=== PATIENT | female | born 1980 ===

== ENCOUNTER → 2024-02-25 06:17 | Day surgery (SDC) | payer OTHER, SELFPAY | LOC: GI 06:17 | PROVIDERS: ATTENDING PHYSICIAN Internal Medicine | DX: D12.0 Benign neoplasm of cecum (principal); D12.2 Benign neoplasm of ascending colon; D12.3 Benign neoplasm of transverse colon; K57.30 Diverticulosis of large intestine without perforation or abscess without bleeding; K62.1 Rectal polyp; K92.1 Melena | CPT/HCPCS: 45385; 45380; 88305 ==

== ENCOUNTER 2024-03-12 06:20 | Day surgery (SDC) | payer OTHER, SELFPAY ==
[2024-03-06 14:16] VITALS: BMI 32.2
[2024-03-06 14:40] LABS: Hematocrit 35.6 % (37.0-47.0); Hemoglobin 12.7 g/dL (12.0-16.0); Mean Corp Hgb Conc. 35.7 g/dL (33.0-37.0); Mean Corpuscular Hgb 29.4 pg (27.0-31.0); Mean Corpuscular Volume 82.4 fL (81.0-99.0); Mean Platelet Volume 8.6 fL (7.4-10.4); Platelet Count 259 10^3/uL (130-400); Red Blood Cell Count 4.32 10^6/uL (4.20-5.40); Red Cell Dist. Width 12.2 % (11.5-14.5); White Blood Cell Count 8.9 10^3/uL (4.8-10.8)
[2024-03-06 15:05] LABS: ALT (SGPT) 26 U/L (0-35); AST (SGOT) 24 U/L (14-36); Albumin 4.2 g/dl (3.5-5.0); Alkaline Phosphatase 45 U/L (38-126); Blood Urea Nitrogen 22 mg/dl (7-17); Calcium 9.7 mg/dl (8.4-10.2); Carbon Dioxide 27 mmol/L (22-30); Chloride 101 mmol/L (98-107); Estimated Creatinine Clearance 105 ml/min; Glucose 96 mg/dl (70-99); Potassium 4.2 mmol/L (3.5-5.1); Sodium 138 mmol/L (135-145); Total Bilirubin 0.4 mg/dl (0.2-1.3); Total Protein 6.6 g/dl (6.3-8.2); eGFR > 60.00
[2024-03-12] VITALS (21 sets, daily range): BP systolic 82–152; BP diastolic 58–105; BMI 32.2
[2024-03-12] MEDS: LYRICA 150 MG PO (11:50)
[2024-03-12] MEDS: SKELAXIN 800 MG PO (11:50)
[2024-03-12] MEDS: CELEBREX 200 MG PO (11:51)
[2024-03-12] MEDS: TYLENOL 1000 MG PO ×3 (11:51→23:30)
[2024-03-12] MEDS: NORMOSOL-R/PLASMALYTE-A 1000 IV (12:00)
[2024-03-12] MEDS: ULTRAM 50 MG PO ×2 (18:17→23:30)
[2024-03-12] MEDS: FLORASTOR 250 MG PO (20:28)
[2024-03-12] MEDS: COLACE 100 MG PO (20:28)
[2024-03-12] MEDS: VITAMIN D3 (cholecalciferol) 125 MCG PO (20:29)
[2024-03-12] MEDS: SENOKOT PO (20:29)
[2024-03-12] MEDS: ANCEF 5 IV (20:29)
[2024-03-12] MEDS: ZOFRAN 4 MG IV (20:51)
[2024-03-12] MEDS: NORMOSOL-R/PLASMALYTE-A IV (22:31)
[2024-03-12] MEDS: LYRICA 75 MG PO (23:30)
--- NOTE | 2024-03-13 01:15 | PTCARENOTE ---
Pt arrived via bed from PACU at 1920. Pt AAOX3. VSS. IVF infusing. NV checks WNL. medial back dressing C/D/I. Head to toe assessment complete. oriented to room and call hein. bed in lowest position and locked.
[2024-03-13] MEDS: ANCEF 5 IV (04:09)
[2024-03-13] MEDS: ULTRAM 50 MG PO ×2 (05:22→11:28)
[2024-03-13] MEDS: TYLENOL 1000 MG PO ×2 (05:22→11:27)
[2024-03-13] MEDS: NORMOSOL-R/PLASMALYTE-A 1000 IV (05:24)
[2024-03-13 05:50] LABS: Hematocrit 33.8 % (37.0-47.0); Hemoglobin 12.4 g/dL (12.0-16.0)
[2024-03-13 06:40] LABS: Blood Urea Nitrogen 16 mg/dl (7-17); Calcium 8.7 mg/dl (8.4-10.2); Carbon Dioxide 22 mmol/L (22-30); Chloride 103 mmol/L (98-107); Estimated Creatinine Clearance 105 ml/min; Glucose 101 mg/dl (70-99); Potassium 4.1 mmol/L (3.5-5.1); Sodium 138 mmol/L (135-145); eGFR > 60.00
[2024-03-13 07:55] VITALS: BP 130/77
--- NOTE | 2024-03-13 07:56 | W.DS.TRANS ---
DC Summary - [employer]
-
Discharge Instructions:
Sleep Apnea Risk Low
Discharge Diagnosis/Procedures Lumbar stenosis with neurogenic claudication s/p
L4-L5 lami/PSF w/ Dr Martel 03/12/24
Diet Regular
Activity As tolerated
Additional Activity No heavy lifting >10 lbs
Driving Restrictions Not until seen by your Dr
Bathing Restrictions OK to shower in 4 days
Instructions:
Stand-Alone Forms: [facility] Lumbar D/C Inst.
Changes to Home Medications: No
Discharge Medications:
DC Medications w/original date entered in [facility]
cholecalciferol (vitamin D3) 125 mcg (5,000 unit) tablet (Vitamin D3) 125 mcg PO DAILY 03/05/24
lactobacillus combination no.4 3 billion cell capsule (Probiotic) 3,000 mmu cells PO DAILY 03/05/24
magnesium 200 mg tablet 400 mg PO DAILY 03/05/24
meloxicam 15 mg tablet 15 mg PO DAILY PRN pain 03/05/24
tramadol 50 mg tablet 50 mg PO DAILY PRN pain 03/05/24
Home Medication Changes
Pending Results: No
--- NOTE | 2024-03-13 07:56 | W.PN.SP ---
Today's Communication / Plan
-
Doing well
D/C post PT
Subjective / Objective
Subjective Data
Doing well
Pain is better in legs
Back is sore
Denies new weakness, both legs feel stronger
Objective Data
Vital Signs
Temp Pulse Resp BP Pulse Ox
98.4 F 86 19 130/77 99
03/13/24 07:55 03/13/24 07:55 03/13/24 07:55 03/13/24 07:55 03/13/24 07:55
Intake and Output
03/12/24 03/13/24 03/14/24
06:59 06:59 06:59
Intake Total 2650 / 2650
Balance 2650 / 2650
Intake:
Oral fluids 1440 / 1440
IV fluids (Total) 1200 / 1200
IV piggybacks
Other:
Number of approximated MODERATE 2
amounts of urine
How many times incontinent 1
MODERATE amount urine
Lab Data
03/13/24 05:12
03/13/24 05:12
Physical Exam
-
Neuro stable
[2024-03-13] MEDS: COLACE 100 MG PO (08:18)
[2024-03-13] MEDS: SENOKOT 17.2 MG PO (08:18)
[2024-03-13] MEDS: VITAMIN D3 (cholecalciferol) 125 MCG PO (08:18)
[2024-03-13] MEDS: FLORASTOR 250 MG PO (08:18)
--- NOTE | 2024-03-13 09:41 | CM ---
Reviewed the chart notes and spoke with the patient at the bedside. The patient resides with her spouse in a split level home with one step to enter. The patient reports no DME/VN/SNF in the past. The patient was issued a back brace to wear. The
patient confirmed her pharmacy of choice is the [facility]. CM continues to be available to patient/family and is monitoring medical plan for needs at discharge.
Plan: Discharge to home when medically stable. No needs identified at this time. VN/homecare ordered, patient declined, no need.
[2024-03-13 10:00] VITALS: BP 132/79; PULSE 79
--- NOTE | 2024-03-13 10:22 | W.PN.ORTHO ---
Today's Communication / Plan
-
D/c today since clinically stable, did well w/ PT and OT.
Assessment
.
Distal Motor Intact: Yes
Dressing:
Clean, dry and intact.
Assessment:
Lumbar stenosis with neurogenic claudication s/p R L3-L4 Discectomy, L L4-L5 Hemilami w/ Dr Martel 03/12/24
DVT prophylaxis - b/l SCDs/TEDs
Colon polyps
Diverticulosis
Plan
.
Surgery / Date: R L3-L4 Discectomy, L L4-L5 Hemilami w/ Dr Martel
DVT Prophylaxis: Other (b/l SCDs/TEDs )
Activity:
Out of bed.
PT/OT
Discharge Plan: Home
Subjective
.
.:
Patient resting comfortably in bed this AM.
Low back pain minimal w/ current pain meds.
Denies any new significant complaints.
AM labs stable.
Eager for potential d/c today.
Vital Signs and Labs
.
Vital Signs and Labs:
Lab Results
03/13/24 05:12
03/13/24 05:12
Temp Pulse Resp BP Pulse Ox
98.4 F 86 19 130/77 99
03/13/24 07:55 03/13/24 07:55 03/13/24 07:55 03/13/24 07:55 03/13/24 07:55
Physical Exam
-
HEENT: No pallor, cyanosis, or jaundice. Throat clear.
NECK: Supple. No JVD.
RESPIRATORY: Lungs clear to auscultation.
CVS: S1, S2 normal. RRR.
ABDOMEN: Soft, non-tender. No distension. Obese.
EXTREMITIES: Strength equal, no calf pain with palpation/dorsiflexion. Calves soft.
INFRASTRUCTURE TECH: AOx3. No focal deficits. learning engineer grossly intact
[2024-03-13 10:28] VITALS: BP 135/92; PULSE 86; O2SAT 96
--- NOTE | 2024-03-13 10:32 | W.DS.TRANS ---
DC Summary - [employer]
-
Discharge Instructions:
Sleep Apnea Risk Low
Discharge Diagnosis/Procedures Lumbar stenosis with neurogenic claudication s/p
right L3-L4 Discectomy, left L4-L5
Hemilaminectomy w/ Dr Martel 03/12/24
Diet Regular
Activity As tolerated
Additional Activity No heavy lifting >10 lbs
Driving Restrictions Not until seen by your Dr
Bathing Restrictions OK to shower in 4 days
Instructions:
Stand-Alone Forms: [facility] Lumbar D/C Inst.
Changes to Home Medications: Yes
Discharge Medications:
DC Medications w/original date entered in [facility]
cholecalciferol (vitamin D3) 125 mcg (5,000 unit) tablet (Vitamin D3) 125 mcg PO DAILY 03/05/24
lactobacillus combination no.4 3 billion cell capsule (Probiotic) 3,000 mmu cells PO DAILY 03/05/24
magnesium 200 mg tablet 400 mg PO DAILY 03/05/24
acetaminophen 500 mg tablet (Tylenol Extra Strength) 1,000 mg (2 x 500 mg) PO Q6H #60 tabs 03/13/24
cephalexin 500 mg capsule 500 mg PO QID #20 caps 03/13/24
docusate sodium 100 mg capsule 100 mg PO BID #30 caps 03/13/24
ondansetron HCl 4 mg tablet 4 mg PO Q6H PRN nausea and vomiting #30 tabs 03/13/24
pregabalin 75 mg capsule 75 mg PO BID neuropathic pain #15 caps 03/13/24
sennosides 8.6 mg tablet (Senna Laxative) 17.2 mg (2 x 8.6 mg) PO BID #30 tabs 03/13/24
tramadol 50 mg tablet 50 - 100 mg (1 - 2 x 50 mg) PO Q6H PRN moderate-severe pain #30 tabs 03/13/24
Home Medication Changes
acetaminophen 500 mg tablet (Tylenol Extra Strength) 1,000 mg (2 x 500 mg) PO Q6H #60 tabs 03/13/24
cephalexin 500 mg capsule 500 mg PO QID #20 caps 03/13/24
docusate sodium 100 mg capsule 100 mg PO BID #30 caps 03/13/24
ondansetron HCl 4 mg tablet 4 mg PO Q6H PRN nausea and vomiting #30 tabs 03/13/24
pregabalin 75 mg capsule 75 mg PO BID neuropathic pain #15 caps 03/13/24
sennosides 8.6 mg tablet (Senna Laxative) 17.2 mg (2 x 8.6 mg) PO BID #30 tabs 03/13/24
tramadol 50 mg tablet 50 - 100 mg (1 - 2 x 50 mg) PO Q6H PRN moderate-severe pain #30 tabs 03/13/24
Pending Results: No
[2024-03-13] MEDS: ZOFRAN 4 MG IV (10:41)
[2024-03-13 11:10] VITALS: BP 132/87
[2024-03-13] MEDS: LYRICA 75 MG PO (11:27)
[2024-03-13 13:29] VITALS: BP 132/79; PULSE 79
== END 2024-03-13 11:47 | disposition home or self-care (01) ==
LOC: SDS 06:20
PROVIDERS: Physician Assistant; ATTENDING PHYSICIAN Orthopaedic Surgery Orthopaedic Surgery of the Spine; FAMILY PHYSICIAN Family Medicine
DX: M48.062 Spinal stenosis, lumbar region with neurogenic claudication (principal); M51.16 Intervertebral disc disorders with radiculopathy, lumbar region
CPT/HCPCS: 63047; 63048; 36415; 72020; 80048; 80053; 85014; 85018; 85027; 86850; 86900; 86901; 87070; 97162; 97166; 97535